=== PATIENT | female | born 2000 | race Caucasian/White ===

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

== ENCOUNTER 2023-04-13 18:58 | Emergency (ER) | payer OTHER ==
[~2023-04-13] VITALS: Ht 162.6 cm; Wt 104.3 kg
[~2023-04-13 18:58] MED LIST: ALLEGRA-D 12 H1 EACH PO; AMOX-CLAV 875-1 EACH PO
[2023-04-13 23:09] LABS: PH,URINE 5.5 (5.0-8.0); URINE APPEARANCE Cloudy; URINE BILIRRUBIN Negative (NEGATIVE); URINE BLOOD Large; URINE COLOR Dark Yellow; URINE GLUCOSE Negative (NEGATIVE); URINE LEUKOCYTE Trace; URINE NITRATE Negative; URINE PROTEIN Trace (NEGATIVE)
[2023-04-13 23:13] LABS: URINE BACTERIA 1373.3 uL (0.0-1933); URINE RBC 4239.8 uL (0.0-20.8); URINE WBC 52.6 uL (0.0-23.2)
[2023-04-13 23:16] LABS: HEMATOCRIT 39.8 % (36.0-45.00); HEMOGLOBIN 12.8 g/dL (12.0-15.00); MEAN CELL VOLUME 86.6 fL (80.00-100.00); MEAN CORPUSCULAR HGB CONC 32.3 g/dl (32.0-36.0); PLATELET COUNT 346 K/uL (150-450); RED BLOOD COUNT 4.59 M/uL (4.00-6.00); RED CELL DISTRIBUTION WIDTH 12.9 % (11.5-14.5)
[2023-04-13 23:29] LABS: CALCIUM 9.8 mg/dL (8.5-10.1); CREATININE SERUM 0.58 mg/dL (0.55-1.02); GFR 132.54; POTASSIUM 3.38 mEq/L (3.5-5.1)
[2023-04-14] MEDS ORDERED: ONDANSETRON ODT4 MG PO (01:21)
== END 2023-04-14 01:32 ==
LOC: ER 18:58 → EMR PED 19:06 → ER 19:06 → EMR PED 04-14 01:32
PROVIDERS: Pediatrics
DX: K29.00 Acute gastritis without bleeding (principal)

== ENCOUNTER 2024-04-20 13:57 | Emergency (ER) | payer OTHER ==
[~2024-04-20] VITALS: Ht 162.6 cm; Wt 99.8 kg
[~2024-04-20 13:57] MED LIST changes: +ONDANSETRON ODT4 MG PO
[2024-04-20] MEDS ORDERED: FAMOtidine 10 MG/ML (4ML VIAL) IV ONE (15:45)
[2024-04-20] MEDS ORDERED: ONDANSETRON HCL 2 MG/ML VIAL IV ONE (15:45)
[2024-04-20] MEDS ORDERED: 0.9 % SODIUM CHLORIDE 1,000 ML IV ONE (15:45)
[2024-04-20 16:43] LABS: HEMATOCRIT 43.2 % (36.0-45.00); MEAN CELL VOLUME 84.5 fL (80.00-100.00); MEAN CORPUSCULAR HEMOGLOBIN 29.3 pg (27.00-32.0); MEAN CORPUSCULAR HGB CONC 34.7 g/dl (32.0-36.0); PLATELET COUNT 366 K/uL (150-450); RED BLOOD COUNT 5.11 M/uL (4.00-6.00); RED CELL DISTRIBUTION WIDTH 13.3 % (11.5-14.5)
[2024-04-20 17:48] LABS: ALBUMIN 3.8 gm/dL (3.4-5.0); ALKALINE PHOSPHATASE 126 U/L (50-136); ALT/SGPT 25 U/L (12-78); ANION GAP 12 (10.0-20.0); AST/SGOT 23 U/L (15-37); BILIRUBIN TOTAL 1.27 mg/dL (0.3-1.2); BLOOD UREA NITROGEN 10 mg/dL (7-18); BUN CREA RATIO 17 (7.0-25.0); CALCIUM 9.7 mg/dL (8.5-10.1); CARBON DIOXIDE 24 mEq/L (21-32); CHLORIDE 109 mmol/L (98-107); CREATININE SERUM 0.59 mg/dL (0.55-1.02); GFR 128.67; GLOBULINA 4.5 G/DL (2.4-3.5); GLUCOSE FASTING 133 mg/dL (65-100); OSMOLALITY SERUM 282 MOSM/KG (275-295); POTASSIUM 4.09 mEq/L (3.5-5.1); SODIUM 141 mmol/L (136-145); TOTAL PROTEIN 8.3 gm/dL (6.4-8.2)
[2024-04-20 17:55] LABS: HCG QUANTITATIVE < 1 mUI/mL (1-3)
[2024-04-20] MEDS ORDERED: PEPCID AC20 MG PO (17:57)
[2024-04-20] MEDS ORDERED: METRONIDAZOLE500 MG PO (17:57)
[2024-04-20] MEDS ORDERED: ZOFRAN8 MG PO (17:57)
== END 2024-04-20 18:20 | disposition home or self-care (01) ==
LOC: ER 13:59
PROVIDERS: General Practice
DX: R19.7 Diarrhea, unspecified (principal); E11.9 Type 2 diabetes mellitus without complications